=== PATIENT | female | born 1990 | race Two or more races ===

== ENCOUNTER 2021-12-22 16:31 | Emergency (ER) | payer OTHER ==
[~2021-12-22] VITALS: Ht 157.5 cm; Wt 52.6 kg
== END 2021-12-22 23:18 | disposition home or self-care (01) ==
LOC: ER 16:31
DX: N83.202 Unspecified ovarian cyst, left side (principal); R10.2 Pelvic and perineal pain

== ENCOUNTER 2022-08-03 12:22 | Emergency (ER) | payer OTHER ==
[~2022-08-03] VITALS: Ht 157.5 cm; Wt 52.2 kg
[2022-08-03] MEDS ORDERED: TUSSI PRES-B L480 ML PO (15:35)
[2022-08-03] MEDS ORDERED: ZITHROMAX500 MG PO (15:35)
== END 2022-08-03 15:51 | disposition home or self-care (01) ==
LOC: ER 12:22
DX: B34.9 Viral infection, unspecified (principal); Z20.822 Contact with and (suspected) exposure to COVID-19